=== PATIENT | male | born 1940 | race African-American/Black ===

== ENCOUNTER 2017-05-05 09:00 | Inpatient (IN) ==
[~2017-05-05 09:00] MED LIST: CITALOPRAM 20 MG TABLET PO PRN; DEXTROSE 50% 25 GM/50 ML VIAL IV PRN; GLUCAGON 1 MG VIAL IM PRN
[2017-05-05] MEDS: traZODone 50 MG TABLET PO SCH ×2 (12:11→20:56)
[2017-05-05] MEDS: SODIUM CHLORIDE 0.9% 1,000 ML IV SCH (12:11)
[2017-05-05] MEDS: CHLORHEXIDINE 0.12% ORAL RINSE 60 ML BOTTLE SWISH/SPIT SCH ×3 (12:12→21:00)
[2017-05-05] MEDS: PRAVASTATIN 40 MG TABLET PO SCH ×2 (12:12→20:56)
[2017-05-05] MEDS: TAMSULOSIN 0.4 MG CAPSULE PO SCH (13:16)
[2017-05-05] MEDS: CAPTOPRIL 25 MG TABLET PO SCH ×2 (13:16→20:56)
[2017-05-05] MEDS: hydroCHLOROthiazide 12.5 MG CAPSULE PO SCH (13:17)
[2017-05-05 14:11] LABS: Basophils % 0.2 % (0.0-0.8); Eosinophils # 0.1 10*3/uL (0.0-0.87); Eosinophils % 1.1 % (0.00-10.9); Hematocrit 43.9 VOL% (42.0-52.0); Hemoglobin 14.6 GM/DL (14.0-18.0); Immature Granulocytes % 0.4 %; Immature Granulocytes Absolute 0.02 #; Lymphocytes # 1.5 10*3/uL (1.4-4.0); Lymphocytes % 27.8 % (21.2-54.2); Mean Corpuscular HGB Conc 33.3 GM/DL (32-36); Mean Corpuscular Hemoglobin 27 PG (27-34); Mean Corpuscular Volume 80.6 FL (87-102); Mean Platelet Volume 10.3 FL (9.6-12.0); Monocytes # 0.6 10*3/uL (0.11-0.8); Neutrophils # 3.1 10*3/uL (1.4-7.4); Neutrophils % 58.5 % (38.7-73.9); Platelet Count 155 T/CUMM (130-400); Red Blood Count 5.45 MC/CUMM (3.8-5.5); White Blood Count 5.3 T/CUMM (4-12)
[2017-05-05 14:48] LABS: Albumin 3.4 G/DL (3.4-5.0); Bilirubin,Total 0.7 MG/DL (0.2-1.0); Calcium 8.4 MG/DL (8.5-10.1); Osmolality,Calculated 277.4 MOS/KG (273-304); Potassium 4.3 MMOL/L (3.5-5.1); Total Protein 6.4 G/DL (6.4-8.3)
[2017-05-05 15:00] LABS: ABG Base Excess 1.5 MMOL/L (-2.5-2.5); ABG HCO3 25.7 MMOL/L (20-26); ABG Oxygen Saturation 97.1 % (95-100); ABG PCO2 39.2 MM HG (35-48); ABG PH 7.427 (7.35-7.45); ABG PO2 87.3 MM HG (80-95); ABG TCO2 22.1 MMOL/L (23-27); Allen Test Positive; Pt O2 Delivery Device Room Air
[2017-05-05] MEDS: CHLORHEXIDINE 4% SOLN 118 ML BOTTLE TOP SCH ×2 (15:46→21:01)
[2017-05-06] MEDS ORDERED: VANCOMYCIN 1,000 MG VIAL ONE (04:34)
[2017-05-06 05:21] LABS: PT Patient Result 10.6 SECS; Partial Thromboplastin Time 24.7 SECS (0-40)
[2017-05-06] MEDS ORDERED: CALCIUM CHLORIDE 1,000 MG/10 ML VIAL IV ONE (05:31)
[2017-05-06] MEDS ORDERED: HEPARIN/NACL 0.9% 2 UNITS/ML 500 ML IV ONE (05:31)
[2017-05-06] MEDS ORDERED: VECURONIUM 10 MG VIAL IV ONE (05:31)
[2017-05-06] MEDS ORDERED: PHENYLEPHRINE DRIP 20 MG/250 ML PREMIX IV ONE ×2 (05:31→11:10)
[2017-05-06] MEDS ORDERED: NITROGLYCERIN DRIP 50 MG/250 ML BOTTLE IV ONE (05:32)
[2017-05-06] MEDS: CAPTOPRIL 25 MG TABLET PO SCH ×2 (05:47→12:35)
[2017-05-06] MEDS: CHLORHEXIDINE 4% SOLN 118 ML BOTTLE TOP SCH ×2 (05:49→12:07)
[2017-05-06] MEDS ORDERED: CEFUROXIME INJ 1,500 MG in SODIUM CHLORIDE 0.9% 50 ML IV ONE (06:00)
[2017-05-06] MEDS ORDERED: TRANEXAMIC ACID 1,000 MG/10 ML VIAL IV ONE ×2 (06:00→07:30)
[2017-05-06 07:43] LABS: ABG Base Excess 1.1 MMOL/L (-2.5-2.5); ABG HCO3 25.4 MMOL/L (20-26); ABG PCO2 30.4 MM HG (35-48); ABG PH 7.494 (7.35-7.45); ABG TCO2 19.9 MMOL/L (23-27); Glucose Heart Surgery 110 MG/DL (74-106); Hematocrit Heart Surgery 43.8 PERCENT (42-52); Hemoglobin Heart Surgery 14.3 G/DL (14.0-18.0); Ionized Calcium Arterial 1.12 MMOL/L (1.21-1.46); PCO2 Patient Temp Arterial 30.4 MMHG; PH Patient Temp Arterial 7.494; Patient Temperature 37 CELCIUS; Potassium Heart/CVR 3.6 MMOL/L (3.5-5.1); Sodium Heart/CVR 137 MMOL/L (135-145)
[2017-05-06 07:46] LABS: Apearance,Urine CLEAR (Clear); Bilirubin,Urine Negative (Negative); Blood, Urine Negative (Negative); Glucose,Urine (UA) Negative (Negative); Ketones,Urine Negative (Negative); Mucus,Urine Occasional /LPF (Occasional); Nitrite,Urine Negative (Negative); Protein,Urine Negative; RBC,Urine 2 /HPF (0-4); Squamous Epithelial Cell,Urine Occasional /HPF (0-10); Urine Color Yellow (Yellow); WBC,Urine <1 /HPF (0-6)
[2017-05-06 08:23] LABS: Hematocrit Heart Surgery 33.1 PERCENT (42-52); Hemoglobin Heart Surgery 10.7 G/DL (14.0-18.0); PCO2 Patient Temp Venous 34.7 MM HG; PH Patient Temp Venous 7.471; Potassium Heart/CVR 3.6 MMOL/L (3.5-5.1); VBG HCO3 25.9 MEQ/L (24-28); VBG PCO2 38.2 MMHG (41-51); VBG PH 7.442; VBG PO2 48.2 MMHG (17-40)
[2017-05-06 08:54] LABS: Hematocrit Heart Surgery 33.2 PERCENT (42-52); Hemoglobin Heart Surgery 10.7 G/DL (14.0-18.0); PCO2 Patient Temp Venous 31.3 MM HG; PH Patient Temp Venous 7.496; PO2 Patient Temp Venous 37.2 MM HG; Potassium Heart/CVR 3.5 MMOL/L (3.5-5.1); VBG Base Excess 1.5 MEQ/L (0-4); VBG HCO3 25.5 MEQ/L (24-28); VBG Oxygen Saturation 82.7 %; VBG PCO2 36.2 MMHG (41-51); VBG PH 7.452; VBG PO2 45.8 MMHG (17-40)
[2017-05-06 09:49] LABS: ABG Base Excess 1.1 MMOL/L (-2.5-2.5); ABG HCO3 25.4 MMOL/L (20-26); ABG PCO2 34.5 MM HG (35-48); ABG PH 7.459 (7.35-7.45); ABG TCO2 21.6 MMOL/L (23-27); Glucose Heart Surgery 174 MG/DL (74-106); Hematocrit Heart Surgery 36.6 PERCENT (42-52); Hemoglobin Heart Surgery 11.9 G/DL (14.0-18.0); Ionized Calcium Arterial 1.36 MMOL/L (1.21-1.46); PCO2 Patient Temp Arterial 34.5 MMHG; PH Patient Temp Arterial 7.459; Patient Temperature 37 CELCIUS; Potassium Heart/CVR 3.4 MMOL/L (3.5-5.1); Sodium Heart/CVR 133 MMOL/L (135-145)
[2017-05-06] MEDS ORDERED: PHENYLEPHRINE DRIP 40 MG/250 ML PREMIX IV ONE (10:38)
[2017-05-06] MEDS ORDERED: PHENYLEPHRINE DRIP 40 MG/250 ML PREMIX IV PRN (11:03)
[2017-05-06] MEDS ORDERED: ACETAMINOPHEN 650 MG SUPP RECTAL PRN (11:03)
[2017-05-06] MEDS ORDERED: DEXTROSE 50% 25 GM/50 ML VIAL IV PRN ×2 (11:03)
[2017-05-06] MEDS ORDERED: NITROPRUSSIDE 100 MG in DEXTROSE 5% 250 ML IV PRN (11:03)
[2017-05-06] MEDS ORDERED: INSULIN REGULAR 100 UNIT/ML IV PRN (11:03)
[2017-05-06] MEDS ORDERED: LACTATED RINGERS 250 ML IV PRN (11:03)
[2017-05-06] MEDS ORDERED: MAGNESIUM SULF RIDER 4 GM in PREMIX 1 EACH IV PRN (11:03)
[2017-05-06] MEDS ORDERED: INSULIN REGULAR 100 UNIT/ML IV ONE (11:03)
[2017-05-06] MEDS ORDERED: MAGNESIUM SULF RIDER 2 GM in PREMIX 1 EACH IV PRN (11:03)
[2017-05-06] MEDS ORDERED: CALCIUM CHLORIDE 1,000 MG/10 ML SYRINGE IV PRN (11:03)
[2017-05-06] MEDS ORDERED: SODIUM CHLORIDE 0.45% 1,000 ML IV SCH ×2 (11:03)
[2017-05-06] MEDS ORDERED: MIDAZOLAM 10 MG/2 ML VIAL IV PRN (11:03)
[2017-05-06] MEDS ORDERED: VECURONIUM 10 MG VIAL IV PRN ×2 (11:03)
[2017-05-06] MEDS ORDERED: INSULIN REGULAR DRIP 100 ML IV SCH (11:03)
[2017-05-06] MEDS ORDERED: ONDANSETRON 4 MG/2 ML VIAL IV PRN (11:03)
[2017-05-06] MEDS ORDERED: PROTAMINE SULFATE 50 MG/5 ML VIAL IV ONE ×3 (11:04→11:11)
[2017-05-06 11:08] LABS: ABG Base Excess 1.3 MMOL/L (-2.5-2.5); ABG HCO3 23.9 MMOL/L (20-26); ABG Oxygen Saturation 99.3 % (95-100); ABG PH 7.492 (7.35-7.45); ABG PO2 249.7 MM HG (80-95); ABG TCO2 24.9 MMOL/L (23-27); Glucose Heart Surgery 119 MG/DL (74-106); Hemoglobin Heart Surgery 13.6 G/DL (14.0-18.0); Potassium Heart/CVR 3.9 MMOL/L (3.5-5.1)
[2017-05-06] MEDS ORDERED: DEXTROSE 5% KCL 20 MEQ 20 MEQ/1,000 ML BAG IV ONE (11:10)
[2017-05-06] MEDS: POTASSIUM CHLORIDE RIDER 20 MEQ in PREMIX 1 EACH IV PRN ×4 (11:10→17:39)
[2017-05-06 11:11] LABS: Basophils % 0.1 % (0.0-0.8); Eosinophils % 0.4 % (0.00-10.9); Hematocrit 39.2 VOL% (42.0-52.0); Hemoglobin 13.4 GM/DL (14.0-18.0); Immature Granulocytes % 0.3 %; Immature Granulocytes Absolute 0.03 #; Lymphocytes # 0.7 10*3/uL (1.4-4.0); Lymphocytes % 7.6 % (21.2-54.2); Mean Corpuscular HGB Conc 34.2 GM/DL (32-36); Mean Corpuscular Hemoglobin 27 PG (27-34); Mean Corpuscular Volume 79.5 FL (87-102); Monocytes # 0.6 10*3/uL (0.11-0.8); Monocytes % 6.5 % (1.7-12.7); Neutrophils # 7.6 10*3/uL (1.4-7.4); Neutrophils % 85.1 % (38.7-73.9); Platelet Count 137 T/CUMM (130-400); Red Blood Count 4.93 MC/CUMM (3.8-5.5); Red Cell Distribution Width 13.1 % (9.3-17.3); White Blood Count 8.9 T/CUMM (4-12)
[2017-05-06] MEDS ORDERED: PROTAMINE SULFATE 250 MG/25 ML VIAL IV ONE (11:11)
[2017-05-06] MEDS ORDERED: MAGNESIUM SULFATE 1 GM/2 ML VIAL ONE (11:11)
[2017-05-06] MEDS ORDERED: methylPREDNISolone SOD SUC 1,000 MG/8 ML VIAL ONE (11:11)
[2017-05-06] MEDS ORDERED: SODIUM BICARBONATE 50 MEQ/50 ML SYRINGE IV ONE (11:11)
[2017-05-06] MEDS ORDERED: FUROSEMIDE 20 MG/2 ML VIAL ONE (11:11)
[2017-05-06] MEDS ORDERED: ALBUMIN 25% 25 GM/100 ML VIAL IV ONE (11:11)
[2017-05-06] MEDS ORDERED: HEPARIN 10,000 UNIT/10 ML VIAL ONE (11:11)
[2017-05-06] MEDS ORDERED: MANNITOL 12.5 GM/50 ML VIAL IV ONE (11:11)
[2017-05-06] MEDS ORDERED: SUFentanil 250 MCG/5 ML AMP ONE (11:12)
[2017-05-06] MEDS ORDERED: ETOMIDATE 20 MG/10 ML VIAL IV ONE (11:13)
[2017-05-06] MEDS ORDERED: MIDAZOLAM 10 MG/2 ML VIAL ONE (11:13)
[2017-05-06] MEDS ORDERED: ePHEDrine 50 MG/ML AMP ONE (11:13)
[2017-05-06] MEDS ORDERED: LACTATED RINGERS 1,000 ML IV ONE (11:14)
[2017-05-06] MEDS ORDERED: SODIUM CHLORIDE 0.9% 100 ML IV ONE (11:14)
[2017-05-06] MEDS ORDERED: SODIUM CHLORIDE 0.9% 1,000 ML IV ONE (11:14)
[2017-05-06] MEDS: LACTATED RINGERS 1,000 ML IV PRN ×3 (11:15→16:01)
[2017-05-06 11:18] LABS: INR 1.2; Partial Thromboplastin Time 28.1 SECS (0-40)
[2017-05-06 11:46] LABS: CKMB % 3.5 %
[2017-05-06 11:48] LABS: Troponin I Only 2.86 NG/ML (0.00-0.045)
[2017-05-06 11:50] LABS: Albumin 3.3 G/DL (3.4-5.0); Bilirubin,Total 1.1 MG/DL (0.2-1.0); Calcium 9.8 MG/DL (8.5-10.1); Magnesium 2.5 MG/DL (1.8-2.4); Osmolality,Calculated 276.7 MOS/KG (273-304); Total Protein 5.8 G/DL (6.4-8.3)
[2017-05-06] MEDS: POTASSIUM CHLORIDE RIDER 10 MEQ in PREMIX 1 EACH IV PRN ×2 (11:56→21:03)
[2017-05-06] MEDS: MIDAZOLAM 2 MG/2 ML VIAL IV PRN ×2 (12:04→12:58)
[2017-05-06] MEDS: ALBUMIN 5% 12.5 GM in PREMIX 1 EACH IV PRN ×5 (12:34→19:53)
[2017-05-06] MEDS: TAMSULOSIN 0.4 MG CAPSULE PO SCH (12:35)
[2017-05-06] MEDS: CHLORHEXIDINE 0.12% ORAL RINSE 60 ML BOTTLE SWISH/SPIT SCH ×2 (12:36→20:54)
[2017-05-06] MEDS: SODIUM CHLORIDE 0.9% 1,000 ML IV SCH (12:36)
[2017-05-06] MEDS: hydroCHLOROthiazide 12.5 MG CAPSULE PO SCH (12:36)
[2017-05-06] MEDS: KETOROLAC 30 MG/1 ML VIAL IV SCH ×3 (12:38→22:50)
[2017-05-06 12:40] LABS: ABG Base Excess 0.5 MMOL/L (-2.5-2.5); ABG HCO3 24.9 MMOL/L (20-26); ABG Oxygen Saturation 99.9 % (95-100); ABG PCO2 35.5 MM HG (35-48); ABG PH 7.442 (7.35-7.45); ABG TCO2 21.2 MMOL/L (23-27); Glucose Heart Surgery 148 MG/DL (74-106); Hemoglobin Heart Surgery 12.6 G/DL (14.0-18.0); Potassium Heart/CVR 4.2 MMOL/L (3.5-5.1)
[2017-05-06 12:41] LABS: Hematocrit Heart Surgery 38.8 PERCENT (42-52)
[2017-05-06] MEDS: MORPHINE 2 MG/1 ML SYRINGE IV PRN (13:01)
[2017-05-06 14:12] LABS: ABG Base Excess -0.1 MMOL/L (-2.5-2.5); ABG HCO3 22.9 MMOL/L (20-26); ABG Oxygen Saturation 98.8 % (95-100); ABG PCO2 32.2 MM HG (35-48); ABG PO2 170.1 MM HG (80-95); ABG TCO2 23.9 MMOL/L (23-27); Glucose Heart Surgery 166 MG/DL (74-106); Hemoglobin Heart Surgery 12.4 G/DL (14.0-18.0); Potassium Heart/CVR 4.4 MMOL/L (3.5-5.1)
[2017-05-06] MEDS: MORPHINE 10 MG/1 ML VIAL IV PRN ×3 (14:30→20:47)
[2017-05-06 15:33] LABS: ABG Base Excess -1.3 MMOL/L (-2.5-2.5); ABG HCO3 21.9 MMOL/L (20-26); ABG Oxygen Saturation 98.7 % (95-100); ABG PCO2 31.8 MM HG (35-48); ABG PH 7.455 (7.35-7.45); ABG PO2 165.5 MM HG (80-95); ABG TCO2 22.8 MMOL/L (23-27); Glucose Heart Surgery 169 MG/DL (74-106); Hemoglobin Heart Surgery 11.8 G/DL (14.0-18.0); Potassium Heart/CVR 4.7 MMOL/L (3.5-5.1)
[2017-05-06 17:30] LABS: ABG Base Excess -1.3 MMOL/L (-2.5-2.5); ABG HCO3 23.2 MMOL/L (20-26); ABG Oxygen Saturation 98.7 % (95-100); ABG PCO2 38.2 MM HG (35-48); ABG PH 7.402 (7.35-7.45); ABG PO2 166.6 MM HG (80-95); ABG TCO2 24.4 MMOL/L (23-27); Glucose Heart Surgery 154 MG/DL (74-106); Potassium Heart/CVR 4.3 MMOL/L (3.5-5.1)
[2017-05-06] MEDS: CEFUROXIME INJ 1,500 MG in SODIUM CHLORIDE 0.9% 50 ML IV SCH (18:21)
[2017-05-06 20:22] LABS: CKMB % 3.3 %
[2017-05-06 20:25] LABS: Troponin I Only 3.74 NG/ML (0.00-0.045)
[2017-05-06 22:51] LABS: ABG Base Excess -0.6 MMOL/L (-2.5-2.5); ABG HCO3 23.3 MMOL/L (20-26); ABG Oxygen Saturation 98.5 % (95-100); ABG PCO2 35.8 MM HG (35-48); ABG PH 7.432 (7.35-7.45); ABG PO2 149.2 MM HG (80-95); ABG TCO2 24.4 MMOL/L (23-27); Glucose Heart Surgery 110 MG/DL (74-106); Hemoglobin Heart Surgery 10.4 G/DL (14.0-18.0); Potassium Heart/CVR 4.5 MMOL/L (3.5-5.1)
[2017-05-07] MEDS ORDERED: FUROSEMIDE 40 MG/4 ML VIAL IV ONE (00:08)
[2017-05-07 01:42] LABS: ABG Base Excess -1.6 MMOL/L (-2.5-2.5); ABG HCO3 23.1 MMOL/L (20-26); ABG Oxygen Saturation 99.6 % (95-100); ABG PCO2 34.7 MM HG (35-48); ABG PH 7.418 (7.35-7.45); ABG TCO2 20.5 MMOL/L (23-27); Glucose Heart Surgery 116 MG/DL (74-106); Hematocrit Heart Surgery 29.3 PERCENT (42-52); Hemoglobin Heart Surgery 9.4 G/DL (14.0-18.0); Potassium Heart/CVR 4.3 MMOL/L (3.5-5.1)
[2017-05-07] MEDS: POTASSIUM CHLORIDE RIDER 20 MEQ in PREMIX 1 EACH IV PRN (01:50)
[2017-05-07 04:06] LABS: ABG Base Excess -1.2 MMOL/L (-2.5-2.5); ABG HCO3 23.4 MMOL/L (20-26); ABG Oxygen Saturation 99.3 % (95-100); ABG PCO2 38.2 MM HG (35-48); ABG PH 7.395 (7.35-7.45); ABG TCO2 21.4 MMOL/L (23-27); Glucose Heart Surgery 125 MG/DL (74-106); Hematocrit Heart Surgery 29.9 PERCENT (42-52); Hemoglobin Heart Surgery 9.7 G/DL (14.0-18.0); Potassium Heart/CVR 4.7 MMOL/L (3.5-5.1)
[2017-05-07 04:08] LABS: Hematocrit 28.8 VOL% (42.0-52.0); Hemoglobin 9.7 GM/DL (14.0-18.0); Immature Granulocytes % 0.4 %; Immature Granulocytes Absolute 0.05 #; Lymphocytes # 0.5 10*3/uL (1.4-4.0); Lymphocytes % 4.5 % (21.2-54.2); Mean Corpuscular HGB Conc 33.7 GM/DL (32-36); Mean Corpuscular Hemoglobin 27 PG (27-34); Mean Corpuscular Volume 81.4 FL (87-102); Mean Platelet Volume 10.1 FL (9.6-12.0); Monocytes # 0.9 10*3/uL (0.11-0.8); Monocytes % 7.4 % (1.7-12.7); Neutrophils # 10.4 10*3/uL (1.4-7.4); Neutrophils % 87.7 % (38.7-73.9); Platelet Count 86 T/CUMM (130-400); Red Blood Count 3.54 MC/CUMM (3.8-5.5); Red Cell Distribution Width 13.1 % (9.3-17.3); White Blood Count 11.8 T/CUMM (4-12)
[2017-05-07] MEDS: MORPHINE 2 MG/1 ML SYRINGE IV PRN ×2 (04:24→07:58)
[2017-05-07 04:39] LABS: Albumin 3.5 G/DL (3.4-5.0); Bilirubin,Direct 0.28 MG/DL (0.0-0.20); Bilirubin,Total 0.7 MG/DL (0.2-1.0); Calcium 8.3 MG/DL (8.5-10.1); Magnesium 1.8 MG/DL (1.8-2.4); Osmolality,Calculated 277.7 MOS/KG (273-304); Potassium 4.8 MMOL/L (3.5-5.1); Total Protein 5.4 G/DL (6.4-8.3)
[2017-05-07 04:41] LABS: CKMB % 2.3 %; Troponin I Only 3.1 NG/ML (0.00-0.045)
[2017-05-07] MEDS: POTASSIUM CHLORIDE RIDER 10 MEQ in PREMIX 1 EACH IV PRN (04:41)
[2017-05-07] MEDS: KETOROLAC 30 MG/1 ML VIAL IV SCH ×4 (04:41→22:01)
[2017-05-07 05:08] LABS: Band Neutrophils 1 % (0-10); Burr Cells Slight; Elliptocytes Few; Giant Platelets Few; Hypochromasia 1+; Lymphocytes 6 % (20-55); Platelet Estimate Decreased; Segmented Neutrophils 87 % (50-85); Total Cells Counted 100
[2017-05-07 05:33] LABS: ABG Base Excess -1.8 MMOL/L (-2.5-2.5); ABG HCO3 22.9 MMOL/L (20-26); ABG Oxygen Saturation 99.4 % (95-100); ABG PCO2 38.9 MM HG (35-48); ABG PH 7.381 (7.35-7.45); ABG TCO2 21.2 MMOL/L (23-27)
[2017-05-07] MEDS: CEFUROXIME INJ 1,500 MG in SODIUM CHLORIDE 0.9% 50 ML IV SCH (06:55)
[2017-05-07 07:06] LABS: ABG Base Excess -1.9 MMOL/L (-2.5-2.5); ABG HCO3 22.8 MMOL/L (20-26); ABG Oxygen Saturation 99.5 % (95-100); ABG PCO2 39.1 MM HG (35-48); ABG PH 7.377 (7.35-7.45); Glucose Heart Surgery 104 MG/DL (74-106); Hemoglobin Heart Surgery 9.7 G/DL (14.0-18.0); Potassium Heart/CVR 4.9 MMOL/L (3.5-5.1)
[2017-05-07] MEDS: CAPTOPRIL 25 MG TABLET PO SCH ×2 (08:08→22:01)
[2017-05-07] MEDS: TAMSULOSIN 0.4 MG CAPSULE PO SCH (08:08)
[2017-05-07] MEDS: hydroCHLOROthiazide 12.5 MG CAPSULE PO SCH (08:08)
[2017-05-07] MEDS: CHLORHEXIDINE 0.12% ORAL RINSE 60 ML BOTTLE SWISH/SPIT SCH ×3 (08:08→22:02)
[2017-05-07] MEDS ORDERED: MAGNESIUM SULF RIDER 2 GM in PREMIX 1 EACH IV PRN (08:55)
[2017-05-07] MEDS ORDERED: ACETAMINOPHEN 325 MG TABLET PO PRN (08:55)
[2017-05-07] MEDS ORDERED: DEXTROSE 50% 25 GM/50 ML VIAL IV PRN (08:55)
[2017-05-07] MEDS ORDERED: ALUMINUM/MAGNES/SIMETH MAX STR 30 ML UDCUP PO PRN (08:55)
[2017-05-07] MEDS ORDERED: GLUCAGON 1 MG VIAL IM PRN (08:55)
[2017-05-07] MEDS ORDERED: MAGNESIUM SULF RIDER 4 GM in PREMIX 1 EACH IV PRN (08:55)
[2017-05-07] MEDS ORDERED: ONDANSETRON 4 MG/2 ML VIAL IV PRN (08:55)
[2017-05-07] MEDS ORDERED: POTASSIUM CHLORIDE 20 MEQ TABLET PO PRN (08:55)
[2017-05-07] MEDS ORDERED: MAGNESIUM HYDROXIDE SUSP 30 ML UDCUP PO PRN (08:55)
[2017-05-07] MEDS: FERROUS SULFATE 325 MG TABLET PO SCH (09:55)
[2017-05-07] MEDS: DOCUSATE SODIUM 100 MG CAPSULE PO SCH (09:55)
[2017-05-07] MEDS: PANTOPRAZOLE 40 MG TABLET PO SCH (09:55)
[2017-05-07] MEDS: ASPIRIN EC 325 MG TABLET PO SCH (09:59)
[2017-05-07] MEDS: SODIUM CHLOR 0.45% KCL 20 MEQ 20 MEQ/1,000 ML BAG IV SCH (10:03)
[2017-05-07] MEDS: oxyCODONE/ACETAMINOPHEN 5-325 MG TABLET PO PRN (19:07)
[2017-05-07] MEDS: PRAVASTATIN 40 MG TABLET PO SCH (22:01)
[2017-05-07] MEDS: ZALEPLON 5 MG CAPSULE PO PRN (22:01)
[2017-05-07] MEDS: traZODone 50 MG TABLET PO SCH (22:02)
[2017-05-08] MEDS: KETOROLAC 30 MG/1 ML VIAL IV SCH ×4 (02:38→21:32)
[2017-05-08 05:25] LABS: Basophils % 0.1 % (0.0-0.8); Hematocrit 28.2 VOL% (42.0-52.0); Hemoglobin 9.4 GM/DL (14.0-18.0); Immature Granulocytes % 0.4 %; Immature Granulocytes Absolute 0.05 #; Lymphocytes # 0.9 10*3/uL (1.4-4.0); Lymphocytes % 7.4 % (21.2-54.2); Mean Corpuscular HGB Conc 33.3 GM/DL (32-36); Mean Corpuscular Hemoglobin 27 PG (27-34); Mean Corpuscular Volume 82.2 FL (87-102); Mean Platelet Volume 10.4 FL (9.6-12.0); Monocytes # 1.4 10*3/uL (0.11-0.8); Neutrophils # 10.1 10*3/uL (1.4-7.4); Neutrophils % 81.1 % (38.7-73.9); Platelet Count 94 T/CUMM (130-400); Red Blood Count 3.43 MC/CUMM (3.8-5.5); Red Cell Distribution Width 13.5 % (9.3-17.3); White Blood Count 12.5 T/CUMM (4-12)
[2017-05-08 05:47] LABS: Hypochromasia 1+; Ovalocytes Slight
[2017-05-08 05:48] LABS: Giant Platelets Few; Microcytosis Slight; Platelet Estimate Decreased
[2017-05-08 05:51] LABS: Calcium 8.2 MG/DL (8.5-10.1); Magnesium 2.4 MG/DL (1.8-2.4); Osmolality,Calculated 282.5 MOS/KG (273-304); Potassium 4.6 MMOL/L (3.5-5.1)
[2017-05-08] MEDS ORDERED: FUROSEMIDE 40 MG/4 ML VIAL IV ONE (06:00)
[2017-05-08 06:05] LABS: Alanine Aminotransferase 17 U/L (16-61); Albumin 3.1 G/DL (3.4-5.0); Alkaline Phosphatase 28 U/L (45-117); Aspartate Amino Transferase 29 U/L (0-37); Bilirubin,Indirect 0.7 MG/DL (0.0-1.0); Blood Urea Nitrogen 25 MG/DL (7-18); Calcium 7.8 MG/DL (8.5-10.1); Glucose 108 MG/DL (74-106); Magnesium 2.4 MG/DL (1.8-2.4); Osmolality,Calculated 281.5 MOS/KG (273-304); Potassium 4.7 MMOL/L (3.5-5.1); Sodium 139 MMOL/L (136-145); Total Protein 5.2 G/DL (6.4-8.3)
[2017-05-08] MEDS: ASPIRIN EC 325 MG TABLET PO SCH (09:20)
[2017-05-08] MEDS: DOCUSATE SODIUM 100 MG CAPSULE PO SCH (09:20)
[2017-05-08] MEDS: PANTOPRAZOLE 40 MG TABLET PO SCH (09:20)
[2017-05-08] MEDS: oxyCODONE/ACETAMINOPHEN 5-325 MG TABLET PO PRN (09:20)
[2017-05-08] MEDS: FERROUS SULFATE 325 MG TABLET PO SCH (09:20)
[2017-05-08] MEDS: TAMSULOSIN 0.4 MG CAPSULE PO SCH (09:20)
[2017-05-08] MEDS: CHLORHEXIDINE 0.12% ORAL RINSE 60 ML BOTTLE SWISH/SPIT SCH ×2 (09:23→21:33)
[2017-05-08] MEDS: SODIUM CHLOR 0.45% KCL 20 MEQ 20 MEQ/1,000 ML BAG IV SCH (10:31)
[2017-05-08] MEDS: PRAVASTATIN 40 MG TABLET PO SCH (21:32)
[2017-05-08] MEDS: traZODone 50 MG TABLET PO SCH (21:33)
[2017-05-08] MEDS: CITALOPRAM 20 MG TABLET PO PRN (21:34)
[2017-05-08] MEDS: ZALEPLON 5 MG CAPSULE PO PRN (21:35)
[2017-05-09] MEDS: KETOROLAC 30 MG/1 ML VIAL IV SCH ×4 (03:17→21:21)
[2017-05-09 05:39] LABS: Basophils % 0.1 % (0.0-0.8); Eosinophils % 0.4 % (0.00-10.9); Hematocrit 27.8 VOL% (42.0-52.0); Hemoglobin 9.2 GM/DL (14.0-18.0); Immature Granulocytes % 0.4 %; Immature Granulocytes Absolute 0.04 #; Lymphocytes % 10.4 % (21.2-54.2); Mean Corpuscular HGB Conc 33.1 GM/DL (32-36); Mean Corpuscular Hemoglobin 27 PG (27-34); Mean Platelet Volume 10.7 FL (9.6-12.0); Monocytes # 1.2 10*3/uL (0.11-0.8); Monocytes % 12.1 % (1.7-12.7); Neutrophils # 7.4 10*3/uL (1.4-7.4); Neutrophils % 76.6 % (38.7-73.9); Platelet Count 93 T/CUMM (130-400); Red Blood Count 3.39 MC/CUMM (3.8-5.5); Red Cell Distribution Width 13.6 % (9.3-17.3); White Blood Count 9.6 T/CUMM (4-12)
[2017-05-09 06:01] LABS: Band Neutrophils 1 % (0-10); Lymphocytes 13 % (20-55); Segmented Neutrophils 84 % (50-85); Total Cells Counted 100
[2017-05-09 06:02] LABS: Hypochromasia 1+; Microcytosis Slight; Ovalocytes Slight; Platelet Estimate Decreased
[2017-05-09 06:13] LABS: Alanine Aminotransferase 26 U/L (16-61); Alkaline Phosphatase 39 U/L (45-117); Aspartate Amino Transferase 37 U/L (0-37); Blood Urea Nitrogen 32 MG/DL (7-18); Calcium 7.9 MG/DL (8.5-10.1); Glucose 93 MG/DL (74-106); Magnesium 2.2 MG/DL (1.8-2.4); Osmolality,Calculated 283.5 MOS/KG (273-304); Potassium 4.4 MMOL/L (3.5-5.1); Sodium 139 MMOL/L (136-145); Total Protein 5.5 G/DL (6.4-8.3)
[2017-05-09] MEDS: FERROUS SULFATE 325 MG TABLET PO SCH (09:09)
[2017-05-09] MEDS: LACTULOSE 20 GM/30 ML UDCUP PO PRN ×2 (09:09→21:21)
[2017-05-09] MEDS: TAMSULOSIN 0.4 MG CAPSULE PO SCH (09:10)
[2017-05-09] MEDS: PANTOPRAZOLE 40 MG TABLET PO SCH (09:10)
[2017-05-09] MEDS: DOCUSATE SODIUM 100 MG CAPSULE PO SCH (09:10)
[2017-05-09] MEDS: ASPIRIN EC 325 MG TABLET PO SCH (09:10)
[2017-05-09] MEDS: oxyCODONE/ACETAMINOPHEN 5-325 MG TABLET PO PRN ×2 (09:10→14:00)
[2017-05-09] MEDS: CHLORHEXIDINE 0.12% ORAL RINSE 60 ML BOTTLE SWISH/SPIT SCH ×2 (12:03→21:25)
[2017-05-09] MEDS: CAPTOPRIL 25 MG TABLET PO SCH (12:13)
[2017-05-09] MEDS: hydroCHLOROthiazide 12.5 MG CAPSULE PO SCH (12:13)
[2017-05-09] MEDS: CITALOPRAM 20 MG TABLET PO PRN (21:22)
[2017-05-09] MEDS: PRAVASTATIN 40 MG TABLET PO SCH (21:23)
[2017-05-09] MEDS: ZALEPLON 5 MG CAPSULE PO PRN (21:23)
[2017-05-09] MEDS: traZODone 50 MG TABLET PO SCH (21:23)
[2017-05-10] MEDS: KETOROLAC 30 MG/1 ML VIAL IV SCH (03:40)
[2017-05-10 06:21] LABS: Basophils % 0.3 % (0.0-0.8); Eosinophils # 0.2 10*3/uL (0.0-0.87); Eosinophils % 2.2 % (0.00-10.9); Hematocrit 27.9 VOL% (42.0-52.0); Hemoglobin 9.2 GM/DL (14.0-18.0); Immature Granulocytes % 0.4 %; Immature Granulocytes Absolute 0.03 #; Lymphocytes % 12.6 % (21.2-54.2); Mean Corpuscular Hemoglobin 27 PG (27-34); Mean Corpuscular Volume 82.8 FL (87-102); Mean Platelet Volume 11.4 FL (9.6-12.0); Monocytes % 12.6 % (1.7-12.7); Neutrophils # 5.4 10*3/uL (1.4-7.4); Neutrophils % 71.9 % (38.7-73.9); Platelet Count 108 T/CUMM (130-400); Red Blood Count 3.37 MC/CUMM (3.8-5.5); Red Cell Distribution Width 13.5 % (9.3-17.3); White Blood Count 7.6 T/CUMM (4-12)
[2017-05-10 07:18] LABS: Albumin 2.9 G/DL (3.4-5.0); Bilirubin,Total 0.6 MG/DL (0.2-1.0); Calcium 7.5 MG/DL (8.5-10.1); Osmolality,Calculated 281.5 MOS/KG (273-304); Potassium 4.3 MMOL/L (3.5-5.1); Total Protein 5.5 G/DL (6.4-8.3)
[2017-05-10] MEDS: FERROUS SULFATE 325 MG TABLET PO SCH (09:14)
[2017-05-10] MEDS: DOCUSATE SODIUM 100 MG CAPSULE PO SCH (09:15)
[2017-05-10] MEDS: ASPIRIN EC 325 MG TABLET PO SCH (09:15)
[2017-05-10] MEDS: PANTOPRAZOLE 40 MG TABLET PO SCH (09:15)
[2017-05-10] MEDS: TAMSULOSIN 0.4 MG CAPSULE PO SCH (09:15)
[2017-05-10] MEDS: oxyCODONE/ACETAMINOPHEN 5-325 MG TABLET PO PRN (09:17)
[2017-05-10] MEDS: CHLORHEXIDINE 0.12% ORAL RINSE 60 ML BOTTLE SWISH/SPIT SCH ×2 (09:20→21:28)
[2017-05-10] MEDS: ZALEPLON 5 MG CAPSULE PO PRN (21:28)
[2017-05-10] MEDS: traZODone 50 MG TABLET PO SCH (21:28)
[2017-05-11 04:51] LABS: Basophils % 0.1 % (0.0-0.8); Eosinophils # 0.2 10*3/uL (0.0-0.87); Eosinophils % 2.4 % (0.00-10.9); Hematocrit 27.4 VOL% (42.0-52.0); Hemoglobin 9.1 GM/DL (14.0-18.0); Immature Granulocytes % 0.4 %; Immature Granulocytes Absolute 0.03 #; Lymphocytes # 1.2 10*3/uL (1.4-4.0); Lymphocytes % 16.5 % (21.2-54.2); Mean Corpuscular HGB Conc 33.2 GM/DL (32-36); Mean Corpuscular Hemoglobin 27 PG (27-34); Mean Corpuscular Volume 81.8 FL (87-102); Mean Platelet Volume 10.6 FL (9.6-12.0); Monocytes # 1.1 10*3/uL (0.11-0.8); Monocytes % 14.8 % (1.7-12.7); Neutrophils # 4.7 10*3/uL (1.4-7.4); Neutrophils % 65.8 % (38.7-73.9); Platelet Count 137 T/CUMM (130-400); Red Blood Count 3.35 MC/CUMM (3.8-5.5); Red Cell Distribution Width 13.4 % (9.3-17.3); White Blood Count 7.1 T/CUMM (4-12)
[2017-05-11 05:34] LABS: Alanine Aminotransferase 84 U/L (16-61); Albumin 2.8 G/DL (3.4-5.0); Alkaline Phosphatase 71 U/L (45-117); Aspartate Amino Transferase 69 U/L (0-37); Bilirubin,Indirect 0.6 MG/DL (0.0-1.0); Blood Urea Nitrogen 19 MG/DL (7-18); Calcium 7.6 MG/DL (8.5-10.1); Glucose 102 MG/DL (74-106); Magnesium 2.5 MG/DL (1.8-2.4); Osmolality,Calculated 280.4 MOS/KG (273-304); Potassium 4.3 MMOL/L (3.5-5.1); Sodium 140 MMOL/L (136-145); Total Protein 5.4 G/DL (6.4-8.3)
[2017-05-11] MEDS: oxyCODONE/ACETAMINOPHEN 5-325 MG TABLET PO PRN ×2 (05:36→20:56)
[2017-05-11 06:15] LABS: Troponin I Only 0.543 NG/ML (0.00-0.045)
[2017-05-11] MEDS: ASPIRIN EC 325 MG TABLET PO SCH (09:45)
[2017-05-11] MEDS: DOCUSATE SODIUM 100 MG CAPSULE PO SCH (09:45)
[2017-05-11] MEDS: TAMSULOSIN 0.4 MG CAPSULE PO SCH (09:45)
[2017-05-11] MEDS: FERROUS SULFATE 325 MG TABLET PO SCH (09:45)
[2017-05-11] MEDS: PANTOPRAZOLE 40 MG TABLET PO SCH (09:45)
[2017-05-11] MEDS: CHLORHEXIDINE 0.12% ORAL RINSE 60 ML BOTTLE SWISH/SPIT SCH ×2 (09:45→20:57)
[2017-05-11] MEDS: ZALEPLON 5 MG CAPSULE PO PRN (20:55)
[2017-05-11] MEDS: traZODone 50 MG TABLET PO SCH (20:56)
[2017-05-12 05:40] LABS: Basophils % 0.3 % (0.0-0.8); Eosinophils # 0.1 10*3/uL (0.0-0.87); Eosinophils % 1.9 % (0.00-10.9); Hematocrit 27.4 VOL% (42.0-52.0); Immature Granulocytes % 0.7 %; Immature Granulocytes Absolute 0.05 #; Lymphocytes # 1.4 10*3/uL (1.4-4.0); Lymphocytes % 19.7 % (21.2-54.2); Mean Corpuscular HGB Conc 32.8 GM/DL (32-36); Mean Corpuscular Hemoglobin 27 PG (27-34); Mean Corpuscular Volume 82.3 FL (87-102); Mean Platelet Volume 10.6 FL (9.6-12.0); Monocytes # 1.3 10*3/uL (0.11-0.8); Monocytes % 17.6 % (1.7-12.7); Neutrophils # 4.3 10*3/uL (1.4-7.4); Neutrophils % 59.8 % (38.7-73.9); Platelet Count 157 T/CUMM (130-400); Red Blood Count 3.33 MC/CUMM (3.8-5.5); Red Cell Distribution Width 13.3 % (9.3-17.3); White Blood Count 7.3 T/CUMM (4-12)
[2017-05-12 06:06] LABS: Eosinophils 2 % (0-10); Lymphocytes 16 % (20-55); Segmented Neutrophils 67 % (50-85)
[2017-05-12 06:07] LABS: Anisocytosis 1+; Elliptocytes 2+; Microcytosis 1+; Platelet Estimate Normal
[2017-05-12 06:08] LABS: Hypochromasia Slight; Total Cells Counted 100
[2017-05-12 06:17] LABS: Alanine Aminotransferase 89 U/L (16-61); Albumin 2.6 G/DL (3.4-5.0); Alkaline Phosphatase 70 U/L (45-117); Aspartate Amino Transferase 64 U/L (0-37); Bilirubin,Indirect 0.6 MG/DL (0.0-1.0); Blood Urea Nitrogen 17 MG/DL (7-18); Calcium 7.8 MG/DL (8.5-10.1); Glucose 83 MG/DL (74-106); Magnesium 2.3 MG/DL (1.8-2.4); Osmolality,Calculated 279.4 MOS/KG (273-304); Potassium 4.4 MMOL/L (3.5-5.1); Sodium 140 MMOL/L (136-145); Total Protein 5.5 G/DL (6.4-8.3)
[2017-05-12 08:34] VITALS: BP 119/72
[2017-05-12] MEDS: DOCUSATE SODIUM 100 MG CAPSULE PO SCH (09:21)
[2017-05-12] MEDS: TAMSULOSIN 0.4 MG CAPSULE PO SCH (09:21)
[2017-05-12] MEDS: CHLORHEXIDINE 0.12% ORAL RINSE 60 ML BOTTLE SWISH/SPIT SCH (09:21)
[2017-05-12] MEDS: PANTOPRAZOLE 40 MG TABLET PO SCH (09:21)
[2017-05-12] MEDS: ASPIRIN EC 325 MG TABLET PO SCH (09:21)
[2017-05-12] MEDS: FERROUS SULFATE 325 MG TABLET PO SCH (09:21)
== END 2017-05-12 10:17 | disposition home health service (06) | DRG 221 ==
LOC: N.TELEN 11:04 → N.CVR 05-06 09:38 → N.TELES 05-07 08:53